=== PATIENT | female | born 1950 | race Caucasian/White ===

== ENCOUNTER → 2018-09-22 09:19 | Outpatient (CLI) | payer MEDICARE, SELFPAY ==
--- NOTE | 2018-09-22 09:25 | MRI_ITS ---
STUDY: MRI BRAIN WITH AND WITHOUT CONTRAST (ATTENTION INTERNAL AUDITORY CANALS - I.A.C.'s) REASON FOR EXAM: Female, 68 years old. ataxia, hx of histoplasmosis; bilat tinnitus, pressure rt ear; hx [place] TECHNIQUE: Standardized multiplanar fat and water weighted pulse sequences were obtained. 10 ml of Gadavist contrast material was administered intravenously for the contrast portion of the examination. COMPARISON: None. FINDINGS: Normal bilateral temporal bones. Normal bilateral internal auditory canals. There is no demonstrated intracanalicular or cisternal vestibular schwannoma (acoustic neuroma). There is no enhancement of the bilateral VIIth or VIIIth cranial nerves. Normal bilateral cochlea, vestibules and semicircular canals. Normal size of the ventricles and extra-axial spaces for the patient's age. Normal white matter tracts of the supratentorial brain. Normal bilateral basal ganglia. Normal thalami. Normal flow voids within the major intracranial circulation suggesting patency by spin echo criteria. Normal venous enhancement. There is no enhancing intra-axial or extra-axial abnormality. There is no extra-axial fluid accumulation. Normal sella turcica, pituitary gland, infundibular stalk, optic chiasm and hypothalamus. Normal tectal plate and pineal gland. Normal midbrain, narendra and medulla. Normal cerebellum. Normal basal cisterns. No demonstrated orbital abnormality, within the constraints of a routine brain study. Normal visualized paranasal sinuses. Normal calvarium and skull base. Normal visualized soft tissue structures. Normal visualized upper cervical spine. MRI/Brain W/WO Contrast IMPRESSION: Normal unenhanced and enhanced MRI of the bilateral internal auditory canals (I.A.C's). Electronically Signed: Komal Hart MD at 9:29 EDT Tel , Service support ,
[2018-09-22 10:16] LABS: CREATININE FINGERSTICK 0.7 mg/dL (0.55-1.02); EGFR FINGERSTICK > 60.0000 mL/min (>60)
== END ==
PROVIDERS: Family Provider Internal Medicine; PCP Internal Medicine; Referring Provider Otolaryngology Otolaryngology/Facial Plastic Surgery; Visit Provider Otolaryngology Otolaryngology/Facial Plastic Surgery
DX: R27.0 Ataxia, unspecified (principal); Z86.19 Personal history of other infectious and parasitic diseases
CPT/HCPCS: 70553; A9585

== ENCOUNTER 2022-04-23 10:30 | Outpatient (CLI) | payer MEDICARE, SELFPAY ==
[2022-04-23 11:52] LABS: EXAGEN MAILED SPECIMEN
[2022-04-23 12:23] LABS: Partial Thromboplast Time 32.9 Seconds (24.1-36.2); Prothrombin Time (Protime)PT. 12.5 SECONDS (11.7-14.9)
[2022-04-23 12:30] LABS: Color, Urine Yellow (Yellow); Glucose, Dipstick Normal (Normal); Ketone-Dipstick Negative (Negative); Leukocyte Esterase-Dipstick 25 /ul (Negative); Nitrite-Dipstick Negative (Negative); Occult Blood-Urine 25 /ul (Negative); Protein-Dipstick Negative (Negative); Specific Gravity, Urine 1.015 (1.002-1.030); Urine Bilirubin Dipstick Negative (Negative); Urine Clarity Sl. Cloudy (Clear); Urine Urobilinogen Normal (Normal)
[2022-04-23 12:36] LABS: Protein, Urine (Random) 10.4 mg/dL (<11.9); Protein:Creat Ratio 129 mg/g CRE (0-200)
[2022-04-23 12:42] LABS: Absolute Lymphocyte Count 1.38 X10^3/uL (0.83-4.51); Basophil# 0.05 X10^3/uL; Basophil% 0.8 % (0-1); Eosinophil# 0.08 X10^3/uL; Eosinophils% 1.3 % (0-5); Hematocrit 42.7 % (37-47); Hemoglobin 14.2 g/dL (12.0-15.0); Lymphocyte # 1.38 X10^3/ul (0.83-4.51); Lymphocyte % 22.7 % (19-41); Mean Corp Hgb Conc 33.3 g/dL (32-36); Mean Corpuscular Hgb 32.3 pg (27.0-32.0); Mean Corpuscular Volume 97.3 fL (81-99); Mean Platelet Vol. 10.8 fl (6.2-12.0); Monocyte# 0.57 X10^3/uL; Monocyte% 9.4 % (0-10); NRBC Flagged by Analyzer 0 % (0-5); Neutrophil # 3.99 X10^3/uL (2.7-7.7); Neutrophil % 65.5 % (47-70); Platelet Count 354 K/mm3 (150-450); RBC Distribution Width CV 13.3 % (11.6-14.6); Red Blood Count 4.39 M/mm3 (4.2-5.4); White Blood Count 6.1 K/mm3 (4.4-11.0)
[2022-04-23 12:48] LABS: Erythrocyte Sedimentation Rate 23 mm/hr (0-30)
[2022-04-23 13:07] LABS: ALB/GLOB Ratio 0.9 RATIO (0.9-2.4); AST(SGOT) 21 U/L (15-37); Alanine Aminotransfer ALT/SGPT 23 U/L (13-56); Albumin, Serum 3.7 g/dL (3.2-5.0); Alkaline Phosphatase 79 U/L (45-117); Anion Gap 8 (5-15); BUN 14 mg/dL (7-18); BUN/Creat Ratio 20.1 RATIO (10-20); CRP < 2.90 mg/L (0.0-3.0); Calcium,Total 9.4 mg/dL (8.5-10.1); Chloride 105 mmol/L (98-107); EST Glomerular Filtration Rate 88 mL/min (>60); Est Glom Filt Rate - Afr Amer 106 mL/min (>60); Globulin 3.9 g/dL (2.2-4.2); Glucose 90 mg/dL (74-106); Potassium 3.4 mmol/L (3.5-5.1); Protein, Total 7.6 g/dL (6.4-8.2); Sodium Level 139 mmol/L (136-145)
[2022-04-23 13:39] LABS: Hepatitis B Surface Antibody Non-Reactive; Hepatitis B Surface Antigen Non-Reactive (Nonreactive); Hepatitis C Antibody Non-Reactive (Nonreactive)
[2022-05-09 16:10] LABS: Dilute Prothrombin Time (dPT) 34.6 sec (0.0-47.6); Dilute Russell Viper Venom 34.6 sec (0.0-47.0); Hexagonal Phase Phospholipid 1 sec (0-11); Lyme IgG P18 Ab Absent (.); Lyme IgG P23 Ab Absent (.); Lyme IgG P28 Ab Absent (.); Lyme IgG P30 Ab Absent (.); Lyme IgG P39 Ab Absent (.); Lyme IgG P41 Ab Absent (.); Lyme IgG P45 Ab Absent (.); Lyme IgG P58 Ab Absent (.); Lyme IgG P66 Ab Absent (.); Lyme IgG P93 Ab Absent (.); Lyme IgM P23 Ab Absent (.); Lyme IgM P39 Ab Absent (.); Lyme IgM P41 Ab Absent (.); PTT-LA 36.9 sec (0.0-51.9); Thrombin Time 17.4 sec (0.0-23.0); dPT Confirm Ratio 1.04 Ratio (0.00-1.34)
[2022-05-09 21:39] LABS: Interpretation Comment: (.); Lyme IgG WB Interpretation Negative (.); Lyme IgM WB Interpretation Negative (.)
== END 2022-04-23 23:59 | disposition home or self-care (01) ==
PROVIDERS: Referring Provider Internal Medicine Rheumatology; Visit Provider Internal Medicine Rheumatology
DX: M06.4 Inflammatory polyarthropathy (principal); R76.8 Other specified abnormal immunological findings in serum; M19.041 Primary osteoarthritis, right hand; M19.042 Primary osteoarthritis, left hand; M79.7 Fibromyalgia; M47.897 Other spondylosis, lumbosacral region; M47.892 Other spondylosis, cervical region; I10 Essential (primary) hypertension; E03.9 Hypothyroidism, unspecified; H35.30 Unspecified macular degeneration; K21.9 Gastro-esophageal reflux disease without esophagitis; J30.2 Other seasonal allergic rhinitis; M21.42 Flat foot [pes planus] (acquired), left foot; M21.41 Flat foot [pes planus] (acquired), right foot; M17.0 Bilateral primary osteoarthritis of knee; Z86.19 Personal history of other infectious and parasitic diseases
CPT/HCPCS: 36415; 80053; 81002; 82570; 84156; 85025; 85598; 85610; 85652; 85730; 86140; 86617; 86706; 86803; 87340